=== PATIENT | male | born 1960 | race Two or more races ===

== ENCOUNTER 2016-08-25 07:17 | Emergency (ER) | payer BC, OTHER ==
[~2016-08-25] VITALS: Ht 165.1 cm; Wt 72.6 kg
[2016-08-25 07:40] LABS: *BILIRUBIN,URIN NEGATIVE (NEGATIVE); *BLOOD, URINE Trace-lysed (NEGATIVE); *CLARITY,URINE CLEAR (CLEAR); *COLOR,URINE YELLOW (YELLOW); *KETONES,URINE NEGATIVE (NEGATIVE); *PROTEIN,URINE NEGATIVE (NEGATIVE); LEUKOCYTE ESTERASE ,URINE 1+ (NEGATIVE); NITRITE, URINE NEGATIVE (NEGATIVE); UGLUCOSE NEGATIVE (NEGATIVE)
[2016-08-25 07:58] LABS: BACTERIA,URINE NONE SEEN /HPF (NONE SEEN); SQUAMOUS EPITHELIAL CELL,UR FEW /HPF (NONE SEEN)
--- NOTE | 2016-08-25 07:58 | NUR ---
Patient is resting comfortably on gurney while watching bedside TV.
[2016-08-25] MEDS: SULFAMETH/TRIMETH 800/160 MG TABLET PO ONE (08:19)
[2016-08-25] MEDS ORDERED: SULFAMETH/TRIMETH 800/160 MG TABLET ONE (08:29)
--- NOTE | 2016-08-25 08:33 | NUR ---
Patient discharged to home in stable conditon. Written and verbal after care instructions given to patient. Patient verbalizes understanding of instructions.
== END 2016-08-25 08:34 | disposition home or self-care (01) ==
LOC: ER 07:17
DX: N39.0 Urinary tract infection, site not specified (principal)
CPT/HCPCS: A4663

== ENCOUNTER 2017-06-09 19:27 | Emergency (ER) | payer BC, OTHER ==
[~2017-06-09] VITALS: Ht 162.6 cm; Wt 72.6 kg
[2017-06-09] MEDS ORDERED: IBUPROFEN 800 MG TABLET PO ONE (20:00)
[2017-06-09] MEDS ORDERED: IBUPROFEN 800 MG TABLET ONE (20:13)
--- NOTE | 2017-06-09 20:31 | NUR ---
PT WAS EVALUATED BY DR FRANKLIN. PT WAS D/C TO HOME. D/C INSTRUCTIONS GIVEN TO THE PT.
[2017-06-09 20:32] VITALS: BP 141/78
== END 2017-06-09 20:33 | disposition home or self-care (01) ==
LOC: ER 19:28
DX: S92.002A Unspecified fracture of left calcaneus, initial encounter for closed fracture (principal); X58.XXXA Exposure to other specified factors, initial encounter; Y93.89 Activity, other specified; Y92.89 Other specified places as the place of occurrence of the external cause; Y99.8 Other external cause status
CPT/HCPCS: 73650; A4663

== ENCOUNTER 2017-07-18 04:50 | Emergency (ER) | payer BC, OTHER ==
[~2017-07-18] VITALS: Ht 162.6 cm; Wt 72.6 kg
--- NOTE | 2017-07-18 05:23 | NUR ---
HR RIGOBERTO DUPREE MD AT BEDSIDE FOR MSE
--- NOTE | 2017-07-18 05:46 | NUR ---
RADIOLOGY AT BEDSIDE FOR XRAY
--- NOTE | 2017-07-18 06:03 | NUR ---
Patient discharged to home in stable conditon. Written and verbal after care instructions given. Patient verbalizes understanding of instructions. No distress noted. Pt ambulated w/ steady gait w/ walking boot.
[2017-07-18 06:06] VITALS: BP 132/82
== END 2017-07-18 06:07 | disposition home or self-care (01) ==
LOC: ER 04:52
DX: M84.375A Stress fracture, left foot, initial encounter for fracture (principal); D64.9 Anemia, unspecified; X58.XXXA Exposure to other specified factors, initial encounter; Y93.89 Activity, other specified; Y92.89 Other specified places as the place of occurrence of the external cause; Y99.8 Other external cause status
CPT/HCPCS: 73650; A4663

== ENCOUNTER 2017-09-18 23:02 | Emergency (ER) | payer BC, OTHER ==
[~2017-09-18] VITALS: Ht 167.6 cm; Wt 72.6 kg
--- NOTE | 2017-09-18 23:23 | NUR ---
Patient discharged to home in stable conditon. Written and verbal after care instructions given. Patient verbalizes understanding of instructions.
[2017-09-18 23:24] VITALS: BP 136/74
== END 2017-09-18 23:25 | disposition home or self-care (01) ==
LOC: ER 23:04
DX: Z02.79 Encounter for issue of other medical certificate (principal)
CPT/HCPCS: A4663

== ENCOUNTER 2018-04-04 02:49 | Outpatient (CLI) | payer BC, OTHER | END 2018-04-04 23:59 | disposition home or self-care (01) | LOC: LAB 02:49 | DX: N41.9 Inflammatory disease of prostate, unspecified (principal) | CPT/HCPCS: 36415; 84153 ==

== ENCOUNTER 2019-06-10 21:19 | Emergency (ER) | payer BC, OTHER ==
[~2019-06-10] VITALS: Ht 167.6 cm; Wt 72.6 kg
--- NOTE | 2019-06-10 21:25 | NUR ---
Patient ambulated with stable gait. Speech is clear, speaks in complete sentences. A/Ox4. Patient came for c/o left foot pain x4 months with worsening pain today. Pain 8/10 and localized nonradiating. No edema, skin temp warm to touch, pain on base of foot.
--- NOTE | 2019-06-10 21:25 | NUR ---
Patient discharged to home in stable condition. Written and verbal after care instructions given. Patient verbalizes understanding of instructions. Stressed follow up or return to ER for worsening s/s.
[2019-06-10 22:58] VITALS: BP 151/82
== END 2019-06-10 21:30 | disposition home or self-care (01) ==
LOC: ER 21:23
DX: M72.2 Plantar fascial fibromatosis (principal)
CPT/HCPCS: 73630; A4663

== ENCOUNTER 2019-06-16 19:02 | Emergency (ER) | payer BC, OTHER ==
[~2019-06-16] VITALS: Ht 160 cm; Wt 74.8 kg
--- NOTE | 2019-06-16 19:14 | NUR ---
Patient ambulated with a limp on his LLE, but steady. A/Ox4. Speech is clear, speaks in complete sentences. No acute neuro deficits noted. Patient came for c/o left foot pain that has been ongoing for about a month now. Was seen her last week for the same issue that is not resolving. Pain 9/10, non-radiating, pulses palpable. Respiratory even and unlabored, no cough no sob, no evident use of accessory muscles or increased work of breathing. No cardiovascular distress noted, all pulses palpable, cap refill <3 sec. Denies any n/v/d, or any distress/discomfort. Patient in bed lowest position, sr upx2, call light within reach. Fall and safety precautions implemented per protocol.
--- NOTE | 2019-06-16 19:20 | NUR ---
ERMD at bedside for MSE.
--- NOTE | 2019-06-16 19:30 | NUR ---
Patient discharged to home in stable condition. Written and verbal after care instructions given. Patient verbalizes understanding of instructions. Stressed follow up or return to ER for worsening s/s. Patient ambulated with steady gait.
[2019-06-16 19:47] VITALS: BP 162/105
== END 2019-06-16 19:35 | disposition home or self-care (01) ==
LOC: ER 19:04
DX: M77.9 Enthesopathy, unspecified (principal); M79.672 Pain in left foot; I10 Essential (primary) hypertension
CPT/HCPCS: A4663

== ENCOUNTER 2019-07-02 19:20 | Emergency (ER) | payer BC, OTHER ==
[~2019-07-02] VITALS: Ht 165.1 cm; Wt 72.6 kg
--- NOTE | 2019-07-02 19:45 | NUR ---
Patient came in for recheck for Tendinitis and has been clear to go back to work.
--- NOTE | 2019-07-02 19:52 | NUR ---
Patient discharged to home in stable condition. Written and verbal after care instructions given. Patient verbalizes understanding of instructions. Stressed follow up or return to ER for worsening s/s. Pt ambulated out of the ER with steady gait. All belongings with pt.
[2019-07-02 19:57] VITALS: BP 140/98
== END 2019-07-02 19:52 | disposition home or self-care (01) ==
LOC: ER 19:20
DX: Z09 Encounter for follow-up examination after completed treatment for conditions other than malignant neoplasm (principal); Z02.89 Encounter for other administrative examinations
CPT/HCPCS: A4663

== ENCOUNTER 2019-07-06 13:33 | Emergency (ER) | payer BC, OTHER ==
[~2019-07-06] VITALS: Ht 162.6 cm; Wt 72.6 kg
== END 2019-07-06 15:00 | disposition home or self-care (01) ==
LOC: ER 13:33
DX: Z02.89 Encounter for other administrative examinations (principal); R00.0 Tachycardia, unspecified; M77.52 Other enthesopathy of left foot and ankle
CPT/HCPCS: A4663

== ENCOUNTER 2020-07-16 02:46 | Emergency (ER) | payer BC, OTHER ==
[~2020-07-16] VITALS: Ht 162.6 cm; Wt 71.7 kg
--- NOTE | 2020-07-16 03:05 | NUR ---
Seen and examined by Dr. Santos.
[2020-07-16] MEDS ORDERED: CELE200C PO (03:50)
--- NOTE | 2020-07-16 04:00 | NUR ---
Dr. Santos discussed results of knee xray with patient. Kumar bandage applied to affected knee.
[2020-07-16 04:09] VITALS: BP 150/90
== END 2020-07-16 04:05 | disposition home or self-care (01) ==
LOC: ER 02:47
DX: M25.561 Pain in right knee (principal)
CPT/HCPCS: A4663

== ENCOUNTER 2020-11-14 00:10 | Emergency (ER) | payer BC, OTHER ==
[~2020-11-14] VITALS: Ht 162.6 cm; Wt 68.0 kg
[~2020-11-14 00:10] MED LIST: CELE200C PO
--- NOTE | 2020-11-14 00:38 | NUR ---
Patient c/o left thigh pain that started 3 days ago. Patient states before injury ocurred, he was doing exercise in the swimming pool with his son that my have injuried his thigh. He states that taking a seat, getting up to a sitting position and walking made pain worse. Came in worsening pain.
[2020-11-14] MEDS ORDERED: ACETAMINOPHEN ES 500 MG TABLET PO ONE (00:45)
[2020-11-14] MEDS ORDERED: IBUPROFEN 200 MG TABLET PO ONE (00:45)
[2020-11-14] MEDS ORDERED: HYDR-4209 PO (00:49)
[2020-11-14] MEDS ORDERED: ACETAMINOPHEN ES 500 MG TABLET ONE (00:49)
[2020-11-14] MEDS ORDERED: IBUPROFEN 200 MG TABLET ONE (00:50)
[2020-11-14] MEDS ORDERED: HYDROCODONE/APAP 5-325MG TABLET ONE (00:57)
[2020-11-14 00:59] VITALS: BP 130/89
[2020-11-14] MEDS ORDERED: HYDROCODONE/APAP 5-325MG TABLET PO ONE (01:00)
== END 2020-11-14 00:55 | disposition home or self-care (01) ==
LOC: ER 00:14
DX: S76.912A Strain of unspecified muscles, fascia and tendons at thigh level, left thigh, initial encounter (principal); X50.3XXA Overexertion from repetitive movements, initial encounter; Y93.B9 Activity, other involving muscle strengthening exercises; Y92.34 Swimming pool (public) as the place of occurrence of the external cause
CPT/HCPCS: A4663; A9150

== ENCOUNTER 2021-10-26 21:13 | Emergency (ER) | payer BC, OTHER ==
[~2021-10-26] VITALS: Ht 162.6 cm; Wt 71.7 kg
[~2021-10-26 21:13] MED LIST changes: +HYDR-4209 PO
[2021-10-27] MEDS ORDERED: NAPR-1009 PO (03:26)
[2021-10-27] MEDS ORDERED: NAPROXEN 500 MG TABLET ONE (03:29)
[2021-10-27] MEDS ORDERED: NAPROXEN 500 MG TABLET PO ONE (03:30)
[2021-10-27] MEDS ORDERED: HYDROCODONE/APAP 5-325MG TABLET ONE (03:30)
[2021-10-27] MEDS ORDERED: HYDROCODONE/APAP 5-325MG TABLET PO ONE (03:30)
[2021-10-27 03:48] VITALS: BP 140/82
== END 2021-10-27 03:49 | disposition home or self-care (01) ==
LOC: ER 21:13
DX: M76.61 Achilles tendinitis, right leg (principal)
CPT/HCPCS: A4663

== ENCOUNTER 2022-11-14 18:08 | Emergency (ER) | payer BC, OTHER ==
[~2022-11-14 18:08] MED LIST changes: +NAPR-1009 PO
== END 2022-11-14 18:47 | disposition left against medical advice (07) ==
LOC: ER 18:10
DX: Z53.21 Procedure and treatment not carried out due to patient leaving prior to being seen by health care provider (principal)

== ENCOUNTER 2023-05-18 02:16 | Emergency (ER) | payer OTHER, BC ==
[~2023-05-18] VITALS: Ht 162.6 cm; Wt 80.7 kg
[2023-05-18] MEDS ORDERED: OXYCODONE/APAP 5-325 MG TABLET ONE (03:09)
[2023-05-18] MEDS ORDERED: IBUPROFEN 600 MG TABLET ONE (03:10)
[2023-05-18] MEDS: IBUPROFEN 600 MG TABLET PO ONE (03:14)
[2023-05-18] MEDS: OXYCODONE/APAP 5-325 MG TABLET PO ONE (03:14)
[2023-05-18] MEDS ORDERED: CYCL10TA9 PO (04:36)
[2023-05-18] MEDS ORDERED: HYDR-4209 PO (04:36)
[2023-05-18 04:39] VITALS: O2SAT 98
== END 2023-05-18 11:05 | disposition home or self-care (01) ==
LOC: ER 02:22
DX: S13.4XXA Sprain of ligaments of cervical spine, initial encounter (principal); S63.591A Other specified sprain of right wrist, initial encounter; S40.011A Contusion of right shoulder, initial encounter; W01.0XXA Fall on same level from slipping, tripping and stumbling without subsequent striking against object, initial encounter; Y93.89 Activity, other specified; Y92.89 Other specified places as the place of occurrence of the external cause; Y99.8 Other external cause status
CPT/HCPCS: 72125; 73060; 73090; 73110; A4606; A4663

== ENCOUNTER 2023-06-23 01:03 | Emergency (ER) | payer OTHER ==
[~2023-06-23] VITALS: Ht 157.5 cm; Wt 72.6 kg
[~2023-06-23 01:03] MED LIST changes: +CYCL10TA9 PO
[2023-06-23] MEDS ORDERED: NAPR500T6 PO (01:45)
[2023-06-23] MEDS ORDERED: CYCL5TAB PO (01:45)
[2023-06-23] MEDS: KETOROLAC TROMETHAMINE 30 MG INJ IM ONE (02:01)
[2023-06-23 04:13] VITALS: BP 128/92; TEMP 98.1; O2SAT 96
== END 2023-06-23 02:14 | disposition home or self-care (01) ==
LOC: ER 01:05
DX: M54.2 Cervicalgia (principal); M25.511 Pain in right shoulder; M25.531 Pain in right wrist; M25.521 Pain in right elbow; D64.9 Anemia, unspecified; Z79.899 Other long term (current) drug therapy
CPT/HCPCS: 99283; 96372; J1885; A4606; A4663